=== PATIENT | female | born 1985 | race Caucasian/White ===

== ENCOUNTER 2023-08-02 20:58 | Emergency (ER) | payer OTHER ==
[2023-08-02 21:41] VITALS: TEMP 98.3
--- NOTE | 2023-08-02 22:40 | ED ---
General Adult HPI <Oksana Saenz - Last Filed: 08/03/23 06:38> - General Source: patient, RN notes reviewed Mode of arrival: ambulatory Limitations: no limitations <Windy Taylor - Last Filed: 08/03/23 14:17> - General Chief complaint: Recheck/Abnormal Lab/Rx Stated complaint: Post-Op Complications Time Seen by Provider: 08/02/23 22:14 - History of Present Illness Initial comments: 37-year-old female presents emergency department chief complaint of vaginal pressure that started today. She states that she had a vaginal hysterectomy on July 19. She states Dr. Winters in [place] did the procedure. She states following the procedure she had an infection and was hospitalized for 5 days for antibiotics. She is no longer having a fever. She admits to light vaginal bleeding. She admits to pressure close to the vaginal outlet and the sensation that something is poking her. (Windy Taylor) - Related Data Allergies Allergy/AdvReac Type Severity Reaction Status Date / Time No Known Allergies Allergy Verified 08/02/23 21:41 Review of Systems ROS Other: All systems not noted in ROS Statement are negative. <Oksana Saenz Xavier - Last Filed: 08/03/23 06:38> ROS Other: All systems not noted in ROS Statement are negative. <Windy Taylor - Last Filed: 08/03/23 14:17> ROS Statement: Those systems with pertinent positive or pertinent negative responses have been documented in the HPI. Past Medical History Past Medical History: No Reported History History of Any Multi-Drug Resistant Organisms: None Reported Past Surgical History: Hysterectomy, Tubal Ligation Past Psychological History: Anxiety, Depression Smoking Status: Current every day smoker Past Alcohol Use History: None Reported Past Drug Use History: Prescription Drug Abuse <Windy Taylor - Last Filed: 08/03/23 14:17> General Exam Limitations: no limitations General appearance: alert, in no apparent distress Head exam: Present: atraumatic, normocephalic, normal inspection Eye exam: Present: normal appearance, PERRL, EOMI. Absent: scleral icterus, conjunctival injection, periorbital swelling ENT exam: Present: normal exam, mucous membranes moist Neck exam: Present: normal inspection. Absent: tenderness, meningismus, lymphadenopathy Respiratory exam: Present: normal lung sounds bilaterally. Absent: respiratory distress, wheezes, rales, rhonchi, stridor Cardiovascular Exam: Present: regular rate, normal rhythm, normal heart sounds. Absent: systolic murmur, diastolic murmur, rubs, gallop, clicks GI/Abdominal exam: Present: soft, normal bowel sounds. Absent: distended, tenderness, guarding, rebound, rigid Back exam: Present: normal inspection Neurological exam: Present: alert, oriented X3 Psychiatric exam: Present: normal affect, normal mood Skin exam: Present: warm, dry, intact, normal color. Absent: rash <Windy Taylor - Last Filed: 08/03/23 14:17> Course Vital Signs 08/02/23 08/03/23 08/03/23 21:38 02:00 03:17 Temperature 98.3 F Pulse Rate 92 88 70 Respiratory 20 16 16 Rate Blood Pressure 116/73 112/68 151/69 O2 Sat by Pulse 99 98 98 Oximetry 08/03/23 06:13 Temperature Pulse Rate 83 Respiratory 16 Rate Blood Pressure 111/76 O2 Sat by Pulse 98 Oximetry Medical Decision Making <Oksana Saenz - Last Filed: 08/03/23 06:38> <Windy Taylor - Last Filed: 08/03/23 14:17> - Medical Decision Making Patient's surgeon is Dr. Winters @ [facility]. I did speak with the on-call doctor Tomasz - answering service is [phone] (Oksana Saenz) Was pt. sent in by a medical professional or institution (, PA, MOLDER FEEDER, urgent care, hospital, or long term...) When possible be specific @ -No Did you speak to anyone other than the patient for history (EMS, parent, family, police, friend...)? What history was obtained from this source @ -No Did you review nursing and triage notes (agree or disagree)? Why? @ -I reviewed and agree with nursing and triage notes Were old charts reviewed (outside hosp., previous admission, EMS record, old EKG, old radiological studies, urgent care reports/EKG's, long term records)? Report findings @ -No old charts were reviewed Differential Diagnosis (chest pain, altered mental status, abdominal pain women, abdominal pain men, vaginal bleeding, weakness, fever, dyspnea, syncope, headache, dizziness, GI bleed, back pain, seizure, CVA, palpatations, mental health, musculoskeletal)? @ -cystocele, prolapse, wound dehiscence, this list is not all inclusive EKG interpreted by me (3pts min.). @ -none X-rays interpreted by me (1pt min.). @ -None done CT interpreted by me (1pt min.). @ -None done U/S interpreted by me (1pt. min.). @ -None done What testing was considered but not performed or refused? (CT, X-rays, U/S, labs)? Why? @ -None What meds were considered but not given or refused? Why? @ -None Did you discuss the management of the patient with other professionals (professionals i.e. , PA, MOLDER FEEDER, lab, RT, psych nurse, manager social responsibility, institutional aide, teacher, public affairs officer, nurse outreach case manager)? Give summary @ -Management discussed with on-call INSPECTOR MISSILE, Dr. Tolbert at [facility] who recommends ultrasound to look for dehiscence Was smoking cessation discussed for >3mins.? @ -No Was critical care preformed (if so, how long)? @ -No Were there social determinants of health that impacted care today? How? (Homelessness, low income, unemployed, alcoholism, drug addiction, transportation, low edu. Level, literacy, decrease access to med. care, fdc, rehab)? @ -No Was there de-escalation of care discussed even if they declined (Discuss DNR or withdrawal of care, Hospice)? DNR status @ -No What co-morbidities impacted this encounter? (DM, HTN, Smoking, COPD, CAD, Cancer, CVA, ARF, Chemo, Hep., AIDS, mental health diagnosis, sleep apnea, morbid obesity)? @ -None Was patient admitted / discharged? Hospital course, mention meds given and route, prescriptions, significant lab abnormalities, going to OR and other pertinent info. @ -Patient presented to emergency department with chief complaint of vaginal pressure and poking sensation which she reports started today. She underwent a vaginal hysterectomy on by Dr. Winters in [place]. She continues to have light vaginal bleeding. Pelvic exam performed and there was visible suture material at the vaginal opening. The management was discussed with on-call INSPECTOR MISSILE at [facility], Dr. Tolbert who recommends ultrasound for potential dehiscence. Patient then on to Dr. Saenz at 0211 awaiting ultrasound read and disposition. Undiagnosed new problem with uncertain prognosis? @ -No Drug Therapy requiring intensive monitoring for toxicity (Heparin, Nitro, Insulin, Cardizem)? @ -No Were any procedures done? @ -No Diagnosis/symptom? @ -Vaginal pain Acute, or Chronic, or Acute on Chronic? @ -acute Uncomplicated (without systemic symptoms) or Complicated (systemic symptoms)? @ -uncomplicated Side effects of treatment? @ -No Exacerbation, Progression, or Severe Exacerbation? @ -No Poses a threat to life or bodily function? How? (Chest pain, [place], [place], pneumonia, PE, COPD, DKA, ARF, appy, cholecystitis, CVA, Diverticulitis, Homicidal, Suicidal, threat to staff... and all critical care pts) @ -No (Windy Taylor) Disposition Is patient prescribed a controlled substance at d/c from ED?: No Time of Disposition: 06:18 <Okasna Saenz - Last Filed: 08/03/23 06:38> Is patient prescribed a controlled substance at d/c from ED?: No <Windy Taylor - Last Filed: 08/03/23 14:17> Clinical Impression: Vaginal pain, S/P hysterectomy Disposition: HOME SELF-CARE Condition: Stable Instructions (If sedation given, give patient instructions): Pelvic Pain (ED) Additional Instructions: Please follow up with your OBGYN for re-evaluation of your symptoms. Return for any new or worsening symptoms. Referrals: None,Stated [Primary Care Provider] - 1-2 days
[2023-08-02] MEDS ORDERED: KETOROLAC 15 MG/ML 1 ML VIAL IM STA (23:38)
[2023-08-02] MEDS ORDERED: ACETAMINOPHEN TAB 500 MG TAB PO STA (23:38)
[2023-08-03 02:19] VITALS: RESP 16
--- NOTE | 2023-08-03 05:21 | US ---
EXAM: US Pelvis Transabdominal, Complete CLINICAL HISTORY: US Reason: post hysterectomy, pain, visible stitch TECHNIQUE: Real-time complete transabdominal pelvic ultrasound with image documentation. COMPARISON: No relevant prior studies available. FINDINGS: Uterus/cervix: The uterus has been removed. Right ovary: The right ovary measures 4.5 x 3.3 x 3.5 cm, 27 mL. Normal blood flow. Left ovary: The left ovary measures 4.6 x 3.5 x 4 cm, 33.3 mL with a 3. 1 x 3.3 x 2.5 cm complex cyst within it. Doppler blood flow is normal. Free fluid: No free fluid. Bladder: Unremarkable as visualized. Wall is normal thickness for degree of distention. IMPRESSION: Status post hysterectomy. There is a complex cyst in the left ovary measuring up to 3.3 cm. Doppler blood flow is normal. No evidence of torsion. No free fluid. <MYCVCSECTION> Communications: 08/03/23 05:31 Call From [facility] Dr. Graves on 08/03 05:29 (-04:00)
[2023-08-03 06:14] VITALS: BP 111/76; PULSE 83
== END 2023-08-03 06:38 | disposition home or self-care (01) ==
LOC: EC 20:58
DX: R10.2 Pelvic and perineal pain (principal); F17.200 Nicotine dependence, unspecified, uncomplicated; Z86.59 Personal history of other mental and behavioral disorders
CPT/HCPCS: 93975; 76856; 99284; 96372; J1885